=== PATIENT | male | born 1980 | race Caucasian/White ===

== ENCOUNTER 2020-09-17 14:44 | Emergency (ER) | payer OTHER ==
[~2020-09-17] VITALS: Ht 175.3 cm; Wt 81.8 kg
[2020-09-17 15:03] VITALS: TEMP 97.6
[2020-09-17] MEDS ORDERED: DIAMOX SEQUELS500 M1 PO (17:34)
[2020-09-17 18:19] VITALS: BP 130/84; PULSE 54
== END 2020-09-17 18:19 | disposition home or self-care (01) ==
LOC: COL.ER 14:44
DX: H40.052 Ocular hypertension, left eye (principal); Z87.891 Personal history of nicotine dependence
CPT/HCPCS: J1120

== ENCOUNTER 2020-12-29 15:20 | Emergency (ER) | payer OTHER ==
[~2020-12-29] VITALS: Ht 175.3 cm; Wt 81.8 kg
[~2020-12-29 15:20] MED LIST: DIAMOX SEQUELS500 M1 PO
[2020-12-29 15:42] VITALS: TEMP 97
[2020-12-29] MEDS ORDERED: ISTALOL 2.5 ML2.5 ML OU (18:21)
[2020-12-29] MEDS ORDERED: XALATAN EYE DROPS OD (18:21)
[2020-12-29] MEDS ORDERED: DIAMOX 250MG250 MG PO (18:22)
[2020-12-29 18:32] VITALS: BP 126/78; PULSE 54
== END 2020-12-29 18:33 | disposition home or self-care (01) ==
LOC: COL.ER 15:20
DX: H40.051 Ocular hypertension, right eye (principal); H40.9 Unspecified glaucoma
CPT/HCPCS: J1120